=== PATIENT | male | born 1995 | race Hispanic/Latino ===

== ENCOUNTER 2024-04-26 19:51 | Observation (INO) | payer SELFPAY ==
[~2024-04-26] VITALS: Ht 170.2 cm; Wt 77.1 kg
[2024-04-26 19:57] VITALS: TEMP 98.8
[2024-04-26 20:13] LABS: BASOPHILS % 0.3 % (0.0-1.0); HEMATOCRIT 46.5 % (38.2-49.6); HEMOGLOBIN 15.2 g/dL (14.0-18.0); LYMPHOCYTES % 7.7 % (18.0-39.1); MEAN CORPUSCULAR HEMOGLOBIN 29.5 pg (28-32); MEAN CORPUSCULAR HGB CONC 32.7 g/dL (31-35); MEAN CORPUSCULAR VOLUME 90.1 fL (81-99); MONOCYTES # (AUTO) 0.6 (0.2-0.8); MONOCYTES % 4.5 % (4.4-11.3); NEUTROPHILS # (AUTO) 11.8 (2.1-6.9); NEUTROPHILS % 86.7 % (38.7-80.0); PLATELET COUNT 249 x10e3/uL (140-360); RED BLOOD COUNT 5.16 x10e6/uL (4.3-5.7); RED CELL DISTRIBUTION WIDTH 11.7 % (11.7-14.4); WHITE BLOOD COUNT 13.59 x10e3/uL (4.8-10.8)
[2024-04-26 20:23] LABS: BILIRUBIN,URINE SMALL (NEGATIVE); CLARITY,URINE SL CLOUDY (CLEAR); COLOR,URINE YELLOW (YELLOW); GLUCOSE, URINE NEGATIVE (NEGATIVE); KETONES,URINE TRACE (NEGATIVE); LEUKOCYTE ESTERASE ,URINE NEGATIVE (NEGATIVE); NITRITE,URINE NEGATIVE (NEGATIVE); PH,URINE 5.5 (5 - 7); PROTEIN,URINE DIPSTICK 1+ (NEGATIVE); URINE UROBILINOGEN 0.2 mg/dL (0.2 - 1)
[2024-04-26] MEDS: Morphine 4mg INJECTION 4 MG/ML INJ IV STA (20:28)
[2024-04-26] MEDS: SODIUM CHLORIDE 0.9% 1000ML 1,000 ML IV STA (20:29)
[2024-04-26] MEDS: FAMOTIDINE 20 MG/2 ML VIAL IV STA (20:29)
[2024-04-26] MEDS: ONDANSETRON HCL INJ 2MG/ML 2ML 2 MG/ML VIAL IV STA (20:29)
[2024-04-26 20:31] LABS: ALBUMIN 4.4 g/dL (3.5-5.0); ALBUMIN/GLOBULIN RATIO 1.3 (0.8-2.0); ANION GAP 17.7 mmol/L (8-16); BILIRUBIN,TOTAL 0.7 mg/dL (0.2-1.2); CALCIUM 9.9 mg/dL (8.4-10.2); CREATININE, SERUM 0.84 mg/dL (0.72-1.25); POTASSIUM 3.7 mmol/L (3.5-5.1); TOTAL PROTEIN 7.9 g/dL (6.5-8.1)
[2024-04-26 20:36] LABS: BACTERIA,URINE MODERATE /HPF; WBC,URINE (MAN) 0-5 /HPF (0-5)
[2024-04-26 22:00] VITALS: PULSE 69; RESP 14
[2024-04-26] MEDS ORDERED: Morphine 4mg INJECTION 4 MG/ML INJ IV PRN (22:45)
[2024-04-26] MEDS ORDERED: ONDANSETRON HCL INJ 2MG/ML 2ML 2 MG/ML VIAL IV PRN (22:45)
[2024-04-26 23:08] VITALS: BP 122/74; PULSE 68; RESP 17; TEMP 98.5; O2SAT 100
[2024-04-26] MEDS: SODIUM CHLORIDE 0.9% 1000ML 1,000 ML IV SCH (23:23)
[2024-04-27] VITALS (7 sets, daily range): BP systolic 109–121; BP diastolic 57–78; PULSE 55–78; RESP 16–20; TEMP 98–98.8; O2SAT 98–100
[2024-04-27 06:13] LABS: BASOPHILS % 0.4 % (0.0-1.0); EOSINOPHILS % 0.3 % (0.0-6.0); HEMATOCRIT 41.1 % (38.2-49.6); HEMOGLOBIN 13.1 g/dL (14.0-18.0); LYMPHOCYTES # (AUTO) 1.8 (1.0-3.2); LYMPHOCYTES % 17.6 % (18.0-39.1); MEAN CORPUSCULAR HEMOGLOBIN 29.2 pg (28-32); MEAN CORPUSCULAR HGB CONC 31.9 g/dL (31-35); MEAN CORPUSCULAR VOLUME 91.5 fL (81-99); MONOCYTES # (AUTO) 0.9 (0.2-0.8); MONOCYTES % 9.1 % (4.4-11.3); NEUTROPHILS # (AUTO) 7.4 (2.1-6.9); NEUTROPHILS % 71.7 % (38.7-80.0); PLATELET COUNT 243 x10e3/uL (140-360); RED BLOOD COUNT 4.49 x10e6/uL (4.3-5.7); RED CELL DISTRIBUTION WIDTH 11.9 % (11.7-14.4); WHITE BLOOD COUNT 10.36 x10e3/uL (4.8-10.8)
[2024-04-27 06:46] LABS: ALBUMIN 3.4 g/dL (3.5-5.0); ALBUMIN/GLOBULIN RATIO 1.1 (0.8-2.0); ANION GAP 12.5 mmol/L (8-16); BILIRUBIN,TOTAL 0.6 mg/dL (0.2-1.2); CALCIUM 8.9 mg/dL (8.4-10.2); CREATININE, SERUM 0.83 mg/dL (0.72-1.25); POTASSIUM 3.5 mmol/L (3.5-5.1); TOTAL PROTEIN 6.5 g/dL (6.5-8.1)
[2024-04-28] VITALS (7 sets, daily range): BP systolic 100–120; BP diastolic 59–69; PULSE 55–73; RESP 16–20; TEMP 97.9–98.3; O2SAT 98–100
[2024-04-28] MEDS ORDERED: LIDOCAINE HCL 2% LOCAL INJ 5 ML SDV VIAL INJ ONE (12:57)
[2024-04-28] MEDS ORDERED: FENTANYL CITRATE/PF 100MCG/2 ML INJ ONE (12:57)
[2024-04-28] MEDS ORDERED: ROCURONIUM BROMIDE 1 ML IV ONE (12:57)
[2024-04-28] MEDS ORDERED: MIDAZOLAM HCL 2 MG/2 ML VIAL ONE (12:58)
[2024-04-28] MEDS ORDERED: PROPOFOL IV EMULSION 10 MG/ML 20 ML VIAL ONE ×2 (12:58→13:09)
[2024-04-28] MEDS ORDERED: DEXAMETHASONE SOD PHOS INJ 4 MG/ML SDV ONE (13:14)
[2024-04-28] MEDS ORDERED: ACETAMINOPHEN 1000 MG/100 ML 100 ML IV ONE (13:38)
[2024-04-28] MEDS ORDERED: HYDROMORPHONE 2MG/ML ONE (13:40)
[2024-04-28] MEDS ORDERED: ONDANSETRON HCL INJ 2MG/ML 2ML 2 MG/ML VIAL ONE (13:41)
[2024-04-28] MEDS ORDERED: KETOROLAC TROMETHAMINE 30 MG/ML VIAL ONE (13:41)
[2024-04-28] MEDS ORDERED: SUGAMMADEX SODIUM 200 MG/2 ML VIAL IV ONE (13:43)
[2024-04-29] VITALS: BP 124/71; PULSE 83; RESP 20; TEMP 98.2; O2SAT 99
[2024-04-29 04:00] VITALS: BP 123/64; PULSE 71; RESP 18; TEMP 98.4; O2SAT 98
[2024-04-29 08:45] VITALS: BP 123/64; PULSE 71; RESP 18; TEMP 98.4; O2SAT 98
[2024-04-29 09:33] VITALS: BP 122/72; PULSE 56; RESP 17; TEMP 98.1; O2SAT 100
[2024-04-29] MEDS ORDERED: CELEBREX200 MG PO (11:47)
[2024-04-29] MEDS ORDERED: AUGMENTIN 500-1 EACH PO (11:48)
[2024-04-29] MEDS ORDERED: ONDANSETRON ODT4 MG PO (11:48)
[2024-04-29 12:38] VITALS: BP 115/59; PULSE 68; RESP 18; TEMP 97.9; O2SAT 98
== END 2024-04-29 12:45 | disposition home or self-care (01) ==
LOC: ER 19:56 → ERHOLD 22:38 → MED/SURG2 23:16
PROVIDERS: ADMIT Internal Medicine; ATTEND Internal Medicine
DX: K35.80 Unspecified acute appendicitis (principal)
CPT/HCPCS: 36415; 74177; 80053; 81001; 83690; 83880; 85025; 88304; 93005; 99284; G0378; J0690; J1100; J1885; J2003; J2250; J2270; J2405; J7030